=== PATIENT | female | born 1955 | race Caucasian/White ===

== ENCOUNTER → 2018-07-02 10:36 | Outpatient (CLI) | payer BC, OTHER, SELFPAY ==
--- NOTE | 2018-07-02 | DI.MG.S_ITS ---
BILATERAL DIGITAL SCREENING MAMMOGRAM 3D/2D WITH CAD: 07/02/2018 CLINICAL: Routine screening. Family history of breast cancer. Comparison is made to exams dated: 06/26/2017 mammogram, 04/25/2016 mammogram - [facility], and 01/19/2015 mammogram - [facility]. The tissue of both breasts is heterogeneously dense. This may lower the sensitivity of mammography. Current study was also evaluated with a Computer Aided Detection (CAD) system. There is a circular mole marker overlying the upper left breast. There is an oval asymmetry in the left breast anterior depth central to the nipple seen on the craniocaudal view only. There also is an oval asymmetry in the left breast anterior depth central to the nipple seen on the craniocaudal view only. Additionally, there is an asymmetry in the left breast middle depth inner region seen on the craniocaudal view only. No other significant masses, calcifications, or other findings are seen in either breast. IMPRESSION: INCOMPLETE: NEEDS ADDITIONAL IMAGING EVALUATION The oval asymmetry in the left breast anterior depth central to the nipple seen on the craniocaudal view only is indeterminate. Additional views with possible ultrasound are recommended. The oval asymmetry in the left breast anterior depth central to the nipple seen on the craniocaudal view only is indeterminate. Additional views with possible ultrasound are recommended. The asymmetry in the left breast middle depth inner region seen on the craniocaudal view only is indeterminate. Additional views with possible ultrasound are recommended. This exam was interpreted at Station ID: [id number]. NOTE: For mammograms, a report in lay terms will be sent to the patient. Approximately 15% of breast malignancies will not be visualized mammographically. In the management of a palpable breast mass, a negative mammogram must not discourage biopsy of a clinically suspicious lesion. Electronically Signed By: Jose Elias Doss M.D. ecl/:07/03/2018 07:45:57 letter sent: Additional Imaging Needed ACR BI-RADS Category 0: Incomplete 3340F
== END ==
PROVIDERS: Family Provider Nurse Practitioner Family; PCP Nurse Practitioner Family; Visit Provider Nurse Practitioner Family
DX: Z12.31 Encounter for screening mammogram for malignant neoplasm of breast (principal); Z80.3 Family history of malignant neoplasm of breast
CPT/HCPCS: 77063; 77067

== ENCOUNTER → 2018-07-22 13:32 | Outpatient (CLI) | payer BC, OTHER, SELFPAY ==
--- NOTE | 2018-07-22 | DI.MG.S_ITS ---
UNILATERAL LEFT DIGITAL DIAGNOSTIC MAMMOGRAM 3D/2D WITH ADDITIONAL VIEWS: 07/22/2018 CLINICAL: Additional evaluation requested from prior study. Comparison is made to exams dated: 07/02/2018 mammogram, 06/26/2017 mammogram, and 04/25/2016 mammogram - [facility]. The tissue of left breast is heterogeneously dense. This may lower the sensitivity of mammography. There is 0.4 cm oval equal density asymmetry with an indistinct margin in the left breast anterior depth central to the nipple seen on the craniocaudal view only. There also is 0.3 cm oval equal density asymmetry with an indistinct margin in the left breast anterior depth central to the nipple seen on the craniocaudal view only. Additionally, there is 0.7 cm irregular equal density asymmetry with an indistinct margin in the left breast middle depth medial region seen on the craniocaudal view only. No other significant masses or calcifications are seen in the breast. IMPRESSION: INCOMPLETE: NEEDS ADDITIONAL IMAGING EVALUATION The 0.4 cm oval equal density asymmetry in the left breast anterior depth central to the nipple seen on the craniocaudal view only is indeterminate. An ultrasound is recommended. The 0.3 cm oval equal density asymmetry in the left breast anterior depth central to the nipple seen on the craniocaudal view only is indeterminate. An ultrasound is recommended. The 0.7 cm irregular equal density asymmetry in the left breast middle depth medial region seen on the craniocaudal view only is indeterminate. An ultrasound is recommended. This exam was interpreted at Station ID: [id number]. NOTE: For mammograms, a report in lay terms will be sent to the patient. Approximately 15% of breast malignancies will not be visualized mammographically. In the management of a palpable breast mass, a negative mammogram must not discourage biopsy of a clinically suspicious lesion. Electronically Signed By: Ron manning/amanda:07/22/2018 14:57:40 letter sent: Need Ultrasound ACR BI-RADS Category 0: Incomplete 3340F
--- NOTE | 2018-07-22 | DI.US.S_ITS ---
LIMITED ULTRASOUND OF LEFT BREAST: 07/22/2018 CLINICAL: Patient returns today to evaluate 3 densities in the left breast. Comparison is made to exams dated: 07/22/2018 mammogram, 07/02/2018 mammogram, 06/26/2017 mammogram, 04/25/2016 mammogram - [facility], and 01/19/2015 mammogram - [facility]. Real-time ultrasound of the left breast upper inner, lower inner, and and upper outer quadrants regions was performed on the area of interest. IMPRESSION: PROBABLY BENIGN There is no abnormality seen in the left breast to correspond with the mammography finding in the upper inner, in the upper outer, and in the lower inner quadrants. A follow-up mammogram in 6 months is recommended to demonstrate stability.(01/21/2019) This exam was interpreted at Station ID: [id number]. Electronically Signed By: Ron manning/amanda:07/22/2018 19:08:21 letter sent: Followup Recommended Ultrasound BI-RADS: 3 Probably benign
== END ==
PROVIDERS: PCP Nurse Practitioner Family; Visit Provider Nurse Practitioner Family
DX: R92.8 Other abnormal and inconclusive findings on diagnostic imaging of breast (principal)
CPT/HCPCS: 76642; 77065; G0279

== ENCOUNTER → 2019-04-20 10:04 | Outpatient (CLI) | payer BC, OTHER, SELFPAY ==
--- NOTE | 2019-04-20 | DI.MG.S_ITS ---
BILATERAL DIGITAL DIAGNOSTIC MAMMOGRAM 3D/2D SHORT-TERM FOLLOW-UP: 04/20/2019 CLINICAL: Patient returns for a 6 month follow up of the left breast. Due for bilateral imaging. Comparison is made to exams dated: 07/22/2018 mammogram, 07/02/2018 mammogram, and 06/26/2017 mammogram - [facility]. The tissue of both breasts is heterogeneously dense. This may lower the sensitivity of mammography. There is a benign oval equal density asymmetry with an indistinct margin in the left breast anterior depth central to the nipple seen on the craniocaudal view only. This is less prominent. There also is a benign oval equal density asymmetry with an indistinct margin in the left breast anterior depth central to the nipple seen on the craniocaudal view only. This is less prominent. Additionally, there is a benign oval equal density asymmetry with an indistinct margin in the left breast middle depth medial region seen on the craniocaudal view only. This is less prominent. No other significant masses, calcifications, or other findings are seen in either breast. IMPRESSION: There is no mammographic evidence of malignancy. A 1 year screening mammogram is recommended. This exam was interpreted at Station ID: [id number]. NOTE: For mammograms, a report in lay terms will be sent to the patient. Approximately 15% of breast malignancies will not be visualized mammographically. In the management of a palpable breast mass, a negative mammogram must not discourage biopsy of a clinically suspicious lesion. Electronically Signed By: Ron manning/amanda:04/20/2019 11:20:29 letter sent: Normal Exam ACR BI-RADS Category 2: Benign Finding(s) 3342F
== END ==
PROVIDERS: PCP Nurse Practitioner Family; Visit Provider Nurse Practitioner Family
DX: R92.8 Other abnormal and inconclusive findings on diagnostic imaging of breast (principal); N64.89 Other specified disorders of breast
CPT/HCPCS: 77066; G0279

== ENCOUNTER → 2020-04-23 08:05 | Outpatient (CLI) | payer MEDICARE, OTHER, SELFPAY ==
--- NOTE | 2020-04-23 08:18 | DI.MG.S_ITS ---
Patient Name: JULIO VASQUES date: 1955 Sex: F Attending Physician: Kierra Indications: Date: 04/23/2020 08:11 At the request of: CHANDANA MÉNDEZ Procedure: MM screening mammo BI BILATERAL DIGITAL SCREENING MAMMOGRAM 3D/2D WITH CAD: 04/23/2020 CLINICAL: Routine screening. Family history of breast cancer. Comparison is made to exams dated: 04/20/2019 mammogram, 07/02/2018 mammogram, and 06/26/2017 mammogram - [facility]. The tissue of both breasts is heterogeneously dense. This may lower the sensitivity of mammography. Current study was also evaluated with a Computer Aided Detection (CAD) system. No significant masses, calcifications, or other findings are seen in either breast. There has been no significant interval change. IMPRESSION: NEGATIVE There is no mammographic evidence of malignancy. A 1 year screening mammogram is recommended. This exam was interpreted at Station ID: [id number]. NOTE: For mammograms, a report in lay terms will be sent to the patient. Approximately 15% of breast malignancies will not be visualized mammographically. In the management of a palpable breast mass, a negative mammogram must not discourage biopsy of a clinically suspicious lesion. Electronically Signed By: Xavi Russo M.D., jr/amanda:04/25/2020 08:36:19 letter sent: Normal Exam ACR BI-RADS Category 1: Negative 3341F
== END ==
PROVIDERS: PCP Internal Medicine; Referring Provider Internal Medicine; Visit Provider Internal Medicine
DX: Z12.31 Encounter for screening mammogram for malignant neoplasm of breast (principal); Z80.3 Family history of malignant neoplasm of breast
CPT/HCPCS: 77063; 77067

== ENCOUNTER → 2021-04-24 08:06 | Outpatient (CLI) | payer MEDICARE, OTHER, SELFPAY ==
--- NOTE | 2021-04-24 08:08 | DI.MG.S_ITS ---
BILATERAL DIGITAL SCREENING MAMMOGRAM 3D/2D WITH CAD: 04/24/2021 CLINICAL: Routine screening. Family history of breast cancer. Comparison is made to exams dated: 04/23/2020 mammogram, 04/20/2019 mammogram, 07/22/2018 mammogram, and 07/02/2018 mammogram - [facility]. The tissue of both breasts is heterogeneously dense. This may lower the sensitivity of mammography. Current study was also evaluated with a Computer Aided Detection (CAD) system. No significant masses, calcifications, or other findings are seen in either breast. There has been no significant interval change. IMPRESSION: NEGATIVE There is no mammographic evidence of malignancy. A 1 year screening mammogram is recommended. This exam was interpreted at Station ID: [id number]. NOTE: For mammograms, a report in lay terms will be sent to the patient. Approximately 15% of breast malignancies will not be visualized mammographically. In the management of a palpable breast mass, a negative mammogram must not discourage biopsy of a clinically suspicious lesion. Electronically Signed By: Ron manning/amanda:04/24/2021 09:48:35 letter sent: Normal Exam ACR BI-RADS Category 1: Negative 3341F
== END ==
PROVIDERS: PCP Internal Medicine; Referring Provider Internal Medicine; Visit Provider Internal Medicine
DX: Z12.31 Encounter for screening mammogram for malignant neoplasm of breast (principal); Z80.3 Family history of malignant neoplasm of breast
CPT/HCPCS: 77063; 77067

== ENCOUNTER → 2022-05-22 07:42 | Outpatient (CLI) | payer MEDICARE, OTHER, SELFPAY ==
--- NOTE | 2022-05-22 | DI.MG.S_ITS ---
BILATERAL DIGITAL SCREENING MAMMOGRAM 3D/2D WITH CAD: 05/22/2022 CLINICAL: Routine screening. Family history of breast cancer. Comparison is made to exams dated: 04/24/2021 mammogram, 04/23/2020 mammogram, and 04/20/2019 mammogram - [facility]. The tissue of both breasts is heterogeneously dense. This may lower the sensitivity of mammography. Current study was also evaluated with a Computer Aided Detection (CAD) system. No significant masses, calcifications, or other findings are seen in either breast. There has been no significant interval change. IMPRESSION: NEGATIVE There is no mammographic evidence of malignancy. A 1 year screening mammogram is recommended. Based on Tyrer-Cuzick model (a risk assessment model), the patient's lifetime risk is 23.9% and her 10 year risk is 13.1%. If a patient has an elevated risk, a more comprehensive evaluation should be considered and/or a referral to a genetic counselor. The [employer] [employer], [employer], and NCCN Guidelines advise the consideration of Breast MRI as an adjunct to screening mammography in patients whose Lifetime risk to develop breast cancer is 20% or higher. This exam was interpreted at Station ID: [id number]. NOTE: For mammograms, a report in lay terms will be sent to the patient. Approximately 15% of breast malignancies will not be visualized mammographically. In the management of a palpable breast mass, a negative mammogram must not discourage biopsy of a clinically suspicious lesion. Electronically Signed By: Al plascencia/amanda:05/22/2022 08:28:45 letter sent: Normal Exam ACR BI-RADS Category 1: Negative 3341F
== END ==
PROVIDERS: PCP Internal Medicine; Referring Provider Internal Medicine; Visit Provider Internal Medicine
DX: Z12.31 Encounter for screening mammogram for malignant neoplasm of breast (principal); Z80.3 Family history of malignant neoplasm of breast
CPT/HCPCS: 77063; 77067

== ENCOUNTER → 2023-05-28 08:22 | Outpatient (CLI) | payer MEDICARE, OTHER, SELFPAY ==
--- NOTE | 2023-05-28 | DI.MG.S_ITS ---
BILATERAL DIGITAL SCREENING MAMMOGRAM 3D/2D WITH CAD: 05/28/2023 CLINICAL: Routine screening. Comparison is made to exams dated: 05/22/2022 mammogram, 04/24/2021 mammogram, 04/23/2020 mammogram, and 04/20/2019 mammogram - [facility]. Both breasts are heterogeneously dense, which may obscure small masses (category c / 51-75% glandular tissue). Current study was also evaluated with a Computer Aided Detection (CAD) system. There are benign post operative findings in the left breast. No significant masses, calcifications, or other findings are seen in either breast. There has been no significant interval change. IMPRESSION: BENIGN There is no mammographic evidence of malignancy. A 1 year screening mammogram is recommended. Based on Tyrer-Cuzick model (a risk assessment model), the patient's lifetime risk is 22.8% and her 10 year risk is 13.1%. If a patient has an elevated risk, a more comprehensive evaluation should be considered and/or a referral to a genetic counselor. The [employer], [employer], and NCCN Guidelines advise the consideration of Breast MRI as an adjunct to screening mammography in patients whose Lifetime risk to develop breast cancer is 20% or higher. This exam was interpreted at Station ID: [id number]. NOTE: For mammograms, a report in lay terms will be sent to the patient. Approximately 15% of breast malignancies will not be visualized mammographically. In the management of a palpable breast mass, a negative mammogram must not discourage biopsy of a clinically suspicious lesion. Electronically Signed By: Prudencio neil/amanda:05/28/2023 09:20:30 letter sent: Normal Exam ACR BI-RADS Category 2: Benign Finding(s) 3342F
== END ==
PROVIDERS: PCP Internal Medicine; Referring Provider Internal Medicine; Visit Provider Internal Medicine
DX: Z12.31 Encounter for screening mammogram for malignant neoplasm of breast (principal)
CPT/HCPCS: 77063; 77067

== ENCOUNTER → 2024-06-03 07:37 | Outpatient (CLI) | payer MEDICARE, OTHER, SELFPAY ==
--- NOTE | 2024-06-03 | DI.MG.S_ITS ---
BILATERAL DIGITAL SCREENING MAMMOGRAM 3D/2D WITH CAD: 06/03/2024 CLINICAL: Routine screening. Family history of breast cancer. Comparison is made to exams dated: 05/28/2023 mammogram, 05/22/2022 mammogram, and 04/24/2021 mammogram - . Both breasts are heterogeneously dense, which may obscure small masses (category c / 51-75% glandular tissue). Current study was also evaluated with a Computer Aided Detection (CAD) system. There are benign post operative findings in the left breast. No significant masses, calcifications, or other findings are seen in either breast. There has been no significant interval change. IMPRESSION: BENIGN There is no mammographic evidence of malignancy. A 1 year screening mammogram is recommended. Based on Tyrer-Cuzick model (a risk assessment model), the patient's lifetime risk is 21.7% and her 10 year risk is 13.2%. If a patient has an elevated risk, a more comprehensive evaluation should be considered and/or a referral to a genetic counselor. The [employer], [employer], and NCCN Guidelines advise the consideration of Breast MRI as an adjunct to screening mammography in patients whose Lifetime risk to develop breast cancer is 20% or higher. This exam was interpreted at Station ID: [id number]. NOTE: For mammograms, a report in lay terms will be sent to the patient. Approximately 15% of breast malignancies will not be visualized mammographically. In the management of a palpable breast mass, a negative mammogram must not discourage biopsy of a clinically suspicious lesion. Electronically Signed By: aSlena Álvarez M.D., Ph.D. rohith/amanda:06/04/2024 13:05:11 letter sent: Normal Exam ACR BI-RADS Category 2: Benign Finding(s) 3342F
== END ==
LOC: MAMMO 07:37
PROVIDERS: PCP Internal Medicine; Referring Provider Internal Medicine; Visit Provider Internal Medicine
DX: Z12.31 Encounter for screening mammogram for malignant neoplasm of breast (principal); Z80.3 Family history of malignant neoplasm of breast; R92.333 Mammographic heterogeneous density, bilateral breasts
CPT/HCPCS: 77063; 77067